=== PATIENT | male | born 1985 | race Caucasian/White ===

== ENCOUNTER 2017-02-19 12:44 | Emergency (ER) | payer OTHER ==
[~2017-02-19] VITALS: Ht 177.8 cm; Wt 119.3 kg
[~2017-02-19 12:44] MED LIST: PERCOCET 5/31 TABLET PO
[2017-02-19] MEDS ORDERED: ULTRAM50 MG PO (16:20)
[2017-02-19 16:47] VITALS: BP 138/92
== END 2017-02-19 16:48 | disposition home or self-care (01) ==
LOC: EME 12:44
DX: S80.12XA Contusion of left lower leg, initial encounter (principal); W21.07XA Struck by softball, initial encounter; Y93.64 Activity, baseball
CPT/HCPCS: 73590; 93971; 99281; 99284